=== PATIENT | male | born 1980 | race African-American/Black ===

== ENCOUNTER 2017-12-16 21:33 | Emergency (ER) | payer OTHER ==
[2017-12-16 21:38] VITALS: BP 150/85
--- NOTE | 2017-12-16 21:44 | ED Physician Documentation ---
History of Present Illness - Stated complaint Stated Complaint: FOOT SWELLING - Chief complaint Chief Complaint: Ext Problem - History obtained from History obtained from: Patient - History of Present Illness Timing: Today (this morning) Pain level max: 10 Pain level now: 10 Improved by: rest Worsened by: palpation, weight-bearing - Additonal information Additional information: c/o gradually, steadily worsening pain and swelling of right great toe adjacent to medial aspect of the nail. Denies injury, denies h/o similar symptoms. Symptoms started this morning Review of Systems Constitutional: denies: Fever Skin: reports: Rash (erythema right great toe) Musculoskeletal: reports: Extremity pain, Extremity swelling, Pain with weight bearing PD PAST MEDICAL HISTORY - Past Medical History Past Medical History: No - Past Surgical History Past Surgical History: No - Present Medications Home Medications: Ambulatory Orders Medication Instructions Recorded Confirmed Clindamycin HCl [Cleocin HCl] 300 mg PO QID #27 capsule 12/16/17 oxyCODONE/ACET 5/325 [Percocet 5 1 - 2 each PO Q6H PRN #20 tablet 12/16/17 mg/325 mg] - Allergies Allergies/Adverse Reactions: Allergies Allergy/AdvReac Type Severity Reaction Status Date / Time No Known Drug Allergies Allergy Verified 12/16/17 21:38 - Social History Does the pt smoke?: No Smoking Status: Never smoker Does the pt drink ETOH?: No Does the pt have substance abuse?: No - Immunizations Immunizations are current?: No PD ED PE NORMAL - Vitals Vital signs reviewed: Yes - General General: Alert and oriented X 3, No acute distress, Well developed/nourished PD ED PE EXPANDED - Extremities Extremities: Other (right great toe: generalized swelling of the toe with erythema and tenderness that is greatest along medial nail fold. no fluctuance, no crusting or ingrown nail) Results - Vitals Vitals: Vital Signs - 24 hr 12/16/17 21:36 Temperature 37.0 C Heart Rate 72 Respiratory 18 Rate Blood Pressure 150/85 H O2 Saturation 99 Oxygen O2 Source Room air PD MEDICAL DECISION MAKING - ED course Complexity details: considered differential, d/w patient ED course: right great toe paronychia. Unfortunately, at this time there is no evidence of abscess or drainable purulence. Will trial antibiotics (with pain medication) but carefully instructed to return if worse, and told to anticipate improvement within 2 days of starting the antibiotic Departure - Departure Disposition: 01 Home, Self Care Clinical Impression: Paronychia Condition: Good Instructions: ED Fingernail Infec Follow-Up: [facility] [Provider Group] [facility] [Provider Group] Prescriptions: Clindamycin HCl [Cleocin HCl] 300 mg PO QID #27 capsule oxyCODONE/ACET 5/325 [Percocet 5 mg/325 mg] 1 - 2 each PO Q6H PRN #20 tablet PRN Reason: Pain Comments: You should also take ibuprofen for the pain (this works differently than the Percocet). as the pain subsides, switch to only ibuprofen as soon as you can stop taking the Percocet. Forms: Activity restrictions
[2017-12-16] MEDS ORDERED: IBUPROFEN 600 MG TABLET PO STA (22:01)
[2017-12-16] MEDS ORDERED: CLINDAMYCIN 150 MG CAPSULE PO STA (22:01)
[2017-12-16] MEDS ORDERED: oxyCODONE/ACET 5/325 Prepack 4 PO STA (22:01)
== END 2017-12-16 22:17 | disposition home or self-care (01) ==
LOC: ED 21:33
DX: L03.031 Cellulitis of right toe (principal)
CPT/HCPCS: 99283; A9270